=== PATIENT | female | born 1985 | race American Indian/Alaskan Native ===

== ENCOUNTER 2016-07-26 19:46 | Emergency (ER) | payer SELFPAY ==
[2016-07-26 21:29] VITALS: BP 135/95
[2016-07-27] MEDS ORDERED: ANTIVERT PO ONE (01:40)
[2016-07-27] MEDS ORDERED: TYLENOL PO ONE (01:40)
[2016-07-27 01:59] LABS: Bilirubin,Urine NEG (Negative); Blood,Urine SM (Negative); Ketones,Urine NEG (Negative); Leukocyte Esterase,Urine NEG (Negative); Mucus,Urine FEW /HPF; Nitrite,Urine NEG (Negative); Protein,Urine <15 mg/dL mg/dL (Negative); Urobilinogen,Urine < 2.0 mg/dL (<2.0)
[2016-07-27 02:12] LABS: Hematocrit 40.3 % (30.3-42.9); Hemoglobin 14.2 gm/dl (10.1-14.3); Mean Corpuscular HGB Conc 35 % (30-34); Mean Corpuscular Hemoglobin 33 pg (28-32); Mean Corpuscular Volume 94 fl (79-97); Platelet Count 315 K/mm3 (140-440); Red Cell Distribution Width 12.6 % (13.2-15.2); White Blood Count 11.1 K/mm3 (4.5-11.0)
[2016-07-27 02:31] LABS: Anion Gap 21 mmol/L; BUN/Creatinine Ratio 12.85; Blood Urea Nitrogen 9 mg/dL (7-17); Calcium 9.6 mg/dL (8.4-10.2); Carbon Dioxide 24 mmol/L (22-30); Chloride 96.8 mmol/L (98-107); Glucose 98 mg/dL (65-100); Sodium 138 mmol/L (137-145)
--- NOTE | 2016-07-27 03:40 | Emergency Department Report ---
ED Dizziness HPI - General Chief Complaint: Upper Respiratory Infection Stated Complaint: DIZZINESS/NAUSEA Time Seen by Provider: 07/27/16 01:08 Source: patient Mode of arrival: Ambulatory Limitations: No Limitations - History of Present Illness Initial Comments: 31-year-old female in past smoker history presents with complaint of one week of nonproductive cough, runny nose, mild sore throat. intermittent episodes of slight dizziness which she describes as room spinning, has had 2-3 episodes this week with associated nausea. Patient denies any recent travel, denies any chest pain palpitations no diarrhea no dysuria states that she has had increased urinary frequency for about 2 weeks. 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 Patient is awake alert and oriented 3 fully ambulatory without any assistance, does not appear to be in acute distress. MD Complaint: dizziness Onset/Timin -: week(s) Timing: intermittent Description: "room spinning" History of Same: No History of Trauma: No Severity: mild Improves With: nothing Worsens With: nothing Associated Symptoms: other (increased urinary frequency) - Related Data Previous Rx's Medication Instructions Recorded Last Taken Type Cyclobenzaprine [Flexeril 10 MG 10 mg PO TID PRN #30 tablet 02/23/15 Unknown Rx TAB] HYDROcodone/APAP 5-325 [[place] 1 each PO Q6HR PRN #20 tablet 05/19/15 Unknown Rx 5-325 mg TAB] Promethazine [Phenergan TAB] 25 mg PO Q6HR PRN #20 tab 05/19/15 Unknown Rx Acetaminophen [Acetaminophen ER 650 mg PO Q8HR PRN #20 tablet.er 09/14/15 Unknown Rx TAB] Methocarbamol [Robaxin TAB] 1,500 mg PO TID PRN #30 tab 09/14/15 Unknown Rx Acetaminophen [Acetaminophen TAB] 500 mg PO Q6HR PRN #20 tablet 07/27/16 Unknown Rx Meclizine [Antivert] 12.5 mg PO BID PRN #20 tablet 07/27/16 Unknown Rx Ondansetron [Zofran Odt] 4 mg PO Q8H PRN #15 tab.rapdis 07/27/16 Unknown Rx Allergies Allergy/AdvReac Type Severity Reaction Status Date / Time ketorolac tromethamine Allergy Rash Verified 02/23/15 12:58 [From Toradol] ED Review of Systems ROS: Stated complaint: DIZZINESS/NAUSEA Other details as noted in HPI Constitutional: denies: chills, fever Eyes: denies: eye pain, eye discharge, vision change ENT: denies: ear pain, throat pain Respiratory: denies: cough, shortness of breath, wheezing Cardiovascular: denies: chest pain, palpitations Endocrine: no symptoms reported Gastrointestinal: denies: abdominal pain, nausea, diarrhea Genitourinary: denies: urgency, dysuria, discharge Musculoskeletal: denies: back pain, joint swelling, arthralgia Skin: denies: rash, lesions Neurological: vertigo (patient states she said 2-3 episodes of momentary dizziness this week). denies: headache, weakness, paresthesias Psychiatric: denies: anxiety, depression Hematological/Lymphatic: denies: easy bleeding, easy bruising ED Past Medical Hx - Past Medical History Previous Medical History?: Yes Hx Headaches / Migraines: Yes Additional medical history: insomnia, scoliosis - Surgical History Past Surgical History?: Yes Additional Surgical History: LEEP, Lyphoma removal - Social History Smoking Status: Never Smoker Substance Use Type: None - Medications Home Medications: Home Medications Medication Instructions Recorded Confirmed Last Taken Type Cyclobenzaprine [Flexeril 10 MG 10 mg PO TID PRN #30 tablet 02/23/15 Unknown Rx TAB] HYDROcodone/APAP 5-325 [[place] 1 each PO Q6HR PRN #20 tablet 05/19/15 Unknown Rx 5-325 mg TAB] Promethazine [Phenergan TAB] 25 mg PO Q6HR PRN #20 tab 05/19/15 Unknown Rx Acetaminophen [Acetaminophen ER 650 mg PO Q8HR PRN #20 tablet.er 09/14/15 Unknown Rx TAB] Methocarbamol [Robaxin TAB] 1,500 mg PO TID PRN #30 tab 09/14/15 Unknown Rx Acetaminophen [Acetaminophen TAB] 500 mg PO Q6HR PRN #20 tablet 07/27/16 Unknown Rx Meclizine [Antivert] 12.5 mg PO BID PRN #20 tablet 07/27/16 Unknown Rx Ondansetron [Zofran Odt] 4 mg PO Q8H PRN #15 tab.rapdis 07/27/16 Unknown Rx ED Physical Exam - General Limitations: No Limitations General appearance: alert, in no apparent distress - Head Head exam: Present: atraumatic, normocephalic - Eye Eye exam: Present: normal appearance, PERRL, EOMI - ENT ENT exam: Present: mucous membranes moist - Expanded ENT Exam Expanded Mouth exam: Present: normal external inspection Teeth exam: Present: normal inspection Throat exam: Positive: normal inspection, other (patient has no exudates and no cervical adenopathy) - Neck Neck exam: Present: normal inspection, full ROM - Respiratory Respiratory exam: Present: normal lung sounds bilaterally. Absent: respiratory distress - Cardiovascular Cardiovascular Exam: Present: regular rate, normal rhythm. Absent: systolic murmur, diastolic murmur, rubs, gallop - GI/Abdominal GI/Abdominal exam: Present: soft, normal bowel sounds - Extremities Exam Extremities exam: Present: normal inspection, full ROM, normal capillary refill - Back Exam Back exam: Present: normal inspection - Neurological Exam Neurological exam: Present: alert, oriented X3, CN II-XII intact, normal gait - Expanded Neurological Exam Expanded Patient oriented to: Present: person, place, time Speech: Present: fluid speech Cranial nerves: EOM's Intact: Normal Cerebellar function: Finger to Nose: Normal, Heel to [place]: Normal, [place]: Normal Sensory exam: Upper Extremity Light Touch: Normal, Lower Extremity Light Touch: Normal Motor strength exam: RUE: 5, LUE: 5, RLE: 5, LLE: 5 DTR: bicep (R): 3+, bicep (L): 3+, tricep (R): 3+, tricep (L): 3+, knee (R): 3+ , knee (L): 3+, ankle (R): 3+, ankle (L): 3+ Best Eye Response ([place]): (4) open spontaneously Best Motor Response ([place]): (6) obeys commands Best Verbal Response ([place]): (5) oriented Renaldo Total: 15 - Psychiatric Psychiatric exam: Present: normal affect, normal mood - Skin Skin exam: Present: warm, dry, intact, normal color. Absent: rash ED Course Vital Signs 07/26/16 21:22 Temperature 99.1 F Pulse Rate 81 Respiratory 20 Rate Blood Pressure 135/95 O2 Sat by Pulse 98 Oximetry ED Medical Decision Making - Lab Data Result diagrams: 07/27/16 02:00 07/27/16 02:00 - Medical Decision Making a/p: dizziness, viral syndrome 1- labs unremarkable, ua WNL. CENTOR criteria 0 points 1% - 2.5% likelihood of strep No further testing nor antibiotics. 2- pt states she is no longer experiencing symptoms. I advised her to a well- hydrated and to follow up with her primary care doctor 3- meclizine and zofran prn, will give pt f/u with PMD Critical care attestation.: If time is entered above; I have spent that time in minutes in the direct care of this critically ill patient, excluding procedure time. ED Disposition Clinical Impression: Dizziness Disposition: DISCHARGED TO HOME OR SELFCARE Is pt being admited?: No Does the pt Need Aspirin: No Condition: Stable Instructions: Vertigo (ED), Dizziness (ED), Viral Syndrome (ED) Prescriptions: Acetaminophen [Acetaminophen TAB] 500 mg PO Q6HR PRN #20 tablet PRN Reason: Pain , Severe (7-10) Meclizine [Antivert] 12.5 mg PO BID PRN #20 tablet PRN Reason: Vertigo Ondansetron [Zofran Odt] 4 mg PO Q8H PRN #15 tab.rapdis PRN Reason: Nausea Referrals: EMELIA CHARLES MD [Staff Physician] - 3-5 Days [facility] [Outside] - 3-5 Days Forms: Work/School Release Form(ED) Time of Disposition: 03:40
[2016-07-27 04:21] LABS: Anisocytosis 1+; Basophils % (Manual) 0 % (0.0-1.8); Blastocytes % (Manual) 0 %; Diff Status Complete; Eosinophils % (Manual) 0 % (0.0-4.3); Large Platelets Few
== END 2016-07-27 03:51 | disposition home or self-care (01) ==
LOC: ED 19:46
DX: R42 Dizziness and giddiness (principal); J02.9 Acute pharyngitis, unspecified; R05 Cough; R35.0 Frequency of micturition; G43.909 Migraine, unspecified, not intractable, without status migrainosus; Z88.6 Allergy status to analgesic agent
CPT/HCPCS: 36415; 80048; 81001; 81025; 85007; 85025; 87086; 99283